=== PATIENT | male | born 2000 | race Caucasian/White ===

== ENCOUNTER 2022-08-07 18:26 | Emergency (ER) | payer SELFPAY | END 2022-08-07 20:02 | disposition left against medical advice (07) | LOC: MW.ED 18:26 | DX: Z53.21 Procedure and treatment not carried out due to patient leaving prior to being seen by health care provider (principal) ==

== ENCOUNTER 2022-08-07 22:25 | Emergency (ER) | payer SELFPAY ==
[2022-08-08 00:07] LABS: CORONAVIRUS COVID-19 NAA NEGATIVE (NEGATIVE); INFLUENZA A NAA NEGATIVE (NEGATIVE); INFLUENZA B NAA NEGATIVE (NEGATIVE)
[2022-08-08] MEDS ORDERED: Ondansetron 4 MG Tab.DIS PO ONE (01:03)
== END 2022-08-08 01:17 | disposition home or self-care (01) ==
LOC: MW.ED 22:25
DX: R11.2 Nausea with vomiting, unspecified (principal); R19.7 Diarrhea, unspecified; B34.9 Viral infection, unspecified; Z88.0 Allergy status to penicillin; Z20.822 Contact with and (suspected) exposure to COVID-19
CPT/HCPCS: 0240U; 99284; A9270

== ENCOUNTER 2022-09-23 08:08 | Emergency (ER) | payer SELFPAY ==
[2022-09-23 09:05] LABS: CORONAVIRUS COVID-19 NAA POSITIVE (NEGATIVE); INFLUENZA A NAA NEGATIVE (NEGATIVE); INFLUENZA B NAA NEGATIVE (NEGATIVE); RESPIRATORY SYNCYTIAL VIR NAA NEGATIVE (NEGATIVE)
== END 2022-09-23 09:46 | disposition home or self-care (01) ==
LOC: MW.ED 08:08
DX: U07.1 COVID-19 (principal); J02.0 Streptococcal pharyngitis; Z88.0 Allergy status to penicillin
CPT/HCPCS: 0241U; 87651; 99283

== ENCOUNTER 2022-10-29 10:04 | Emergency (ER) | payer SELFPAY | END 2022-10-29 10:33 | disposition home or self-care (01) | LOC: MW.ED 10:04 | DX: R11.14 Bilious vomiting (principal); Z88.0 Allergy status to penicillin | CPT/HCPCS: 99283 ==

== ENCOUNTER 2023-08-22 13:15 | Emergency (ER) | payer SELFPAY ==
[2023-08-22 15:16] LABS: APPEARANCE,URINE SLT CLOUDY; COLOR,URINE YELLOW; GLUCOSE,URINE NEGATIVE (NEGATIVE); KETONES,URINE 40 mg/dL (NEGATIVE); LEUKOCYTE ESTERASE,URINE NEGATIVE (NEGATIVE); NITRITE,URINE POSITIVE (NEGATIVE); OCCULT BLOOD,URINE NEGATIVE (NEGATIVE); PROTEIN,URINE 30 mg/dL (NEGATIVE)
[2023-08-22 15:39] LABS: AMORPHOUS SEDIMENT,URINE LIGHT (NEGATIVE); BACTERIA,URINE FEW (NEGATIVE); BILIRUBIN,URINE MODERATE (NEGATIVE); EPITHELIAL CELLS,URINE NOT SEEN (NONE-FEW); MUCUS,URINE HEAVY (NONE-MOD); RBC,URINE 0-2 (0-2/HPF)
[2023-08-22 16:46] LABS: C. TRACHOMATIS BY PCR NOT DETECTED; N. GONORRHOEAE BY PCR NOT DETECTED
== END 2023-08-22 17:05 | disposition home or self-care (01) ==
LOC: MW.ED 13:15
DX: N45.1 Epididymitis (principal); Z86.16 Personal history of COVID-19; Z88.0 Allergy status to penicillin
CPT/HCPCS: 76870; 76870-26; 81001; 87491; 87591; 93976; 99284

== ENCOUNTER 2023-09-03 12:46 | Emergency (ER) | payer SELFPAY ==
[2023-09-03 15:34] LABS: CORONAVIRUS COVID-19 NAA NEGATIVE (NEGATIVE); INFLUENZA A NAA NEGATIVE (NEGATIVE); INFLUENZA B NAA NEGATIVE (NEGATIVE); RESPIRATORY SYNCYTIAL VIR NAA NEGATIVE (NEGATIVE)
== END 2023-09-03 15:52 | disposition home or self-care (01) ==
LOC: MW.ED 12:46
DX: Z20.822 Contact with and (suspected) exposure to COVID-19 (principal); Z88.0 Allergy status to penicillin; Z86.16 Personal history of COVID-19
CPT/HCPCS: 0241U; 99283

== ENCOUNTER 2023-11-13 16:31 | Emergency (ER) | payer OTHER | END 2023-11-13 18:01 | disposition home or self-care (01) | LOC: MW.ED 16:31 | DX: R09.82 Postnasal drip (principal); F17.210 Nicotine dependence, cigarettes, uncomplicated; Z88.0 Allergy status to penicillin | CPT/HCPCS: 87651-QW; 99282; 99283 ==

== ENCOUNTER 2024-02-27 08:36 | Emergency (ER) | payer SELFPAY ==
[2024-02-27] MEDS: Sodium Chloride 0.9% 1,000 ML IV ONE (09:20)
[2024-02-27] MEDS: Sodium Chloride 0.9% 10 ML Syringe FLUSH PRN (09:20)
[2024-02-27] MEDS: Sodium Chloride 0.9% 2.5 ML Syringe FLUSH PRN (09:20)
[2024-02-27] MEDS: Ondansetron 4 MG/2 ML SDV IVPUSH ONE (09:21)
[2024-02-27 09:28] LABS: BASOPHILS ABSOLUTE AUTO 0.05 K/uL (0.00-0.20); BASOPHILS PERCENT AUTO 0.5 % (0.0-1.0); EOSINOPHILS ABSOLUTE AUTO 0.21 K/uL (0.00-0.45); EOSINOPHILS PERCENT AUTO 2.2 % (0.0-6.0); HEMATOCRIT 42.1 % (42.0-52.0); HEMOGLOBIN 14.3 g/dL (14.0-18.0); IMMATURE GRAN ABSOLUTE AUTO 0.02 K/uL (0.00-0.05); IMMATURE GRAN PERCENT AUTO 0.2 % (0.0-0.4); LYMPHOCYTES ABSOLUTE AUTO 0.97 K/uL (1.00-4.80); LYMPHOCYTES PERCENT AUTO 10.1 % (24.0-44.0); MEAN CORPUSCULAR HEMOGLOBIN 30.8 pg (28.0-32.0); MEAN CORPUSCULAR VOLUME 90.5 fL (83.0-99.0); MEAN PLATELET VOLUME 10.2 fL (9.4-12.4); MONOCYTES ABSOLUTE AUTO 0.72 K/uL (0.00-0.80); MONOCYTES PERCENT AUTO 7.5 % (0.0-8.0); NEUTROPHILS ABSOLUTE AUTO 7.64 K/uL (1.80-7.70); NEUTROPHILS PERCENT AUTO 79.5 % (41.0-71.0); PLATELET COUNT,PLT 248 K/uL (150-400); RED BLOOD CELL COUNT 4.65 M/uL (4.52-5.90); WHITE BLOOD CELL COUNT,WBC 9.61 K/uL (3.9-11.3)
[2024-02-27 09:51] LABS: A/G RATIO 1.1 (0.9-1.6); ALBUMIN 3.9 g/dL (3.4-5.0); BILIRUBIN TOTAL 0.6 mg/dL (0.2-1.0); CALCIUM 8.9 mg/dL (8.5-10.1); CARBON DIOXIDE,CO2 25.8 mmol/L (21.0-32.0); CREATININE 0.9 mg/dL (0.8-1.3); EST CRCL DRUG DOSING (CG) 128.8 mL/min; POTASSIUM,K 4.1 mmol/L (3.5-5.1); PROTEIN TOTAL,TP 7.6 g/dL (6.4-8.2)
[2024-02-27 10:07] LABS: CORONAVIRUS COVID-19 NAA NEGATIVE (NEGATIVE); INFLUENZA A NAA NEGATIVE (NEGATIVE); INFLUENZA B NAA NEGATIVE (NEGATIVE); RESPIRATORY SYNCYTIAL VIR NAA NEGATIVE (NEGATIVE)
== END 2024-02-27 11:32 | disposition home or self-care (01) ==
LOC: MW.ED 08:36
DX: R11.14 Bilious vomiting (principal); R10.9 Unspecified abdominal pain; Z75.8 Other problems related to medical facilities and other health care; Z88.0 Allergy status to penicillin; Z79.899 Other long term (current) drug therapy
CPT/HCPCS: 0241U; 36415; 80053; 83690; 85025; 96361; 96374; 99284; J2405; J3490; J7030

== ENCOUNTER 2024-05-04 08:15 | Emergency (ER) | payer SELFPAY ==
[2024-05-04] MEDS: Acetaminophen 500 MG Tab PO ONE (08:41)
[2024-05-04] MEDS: Ibuprofen 400 MG Tab PO ONE (08:41)
== END 2024-05-04 09:24 | disposition home or self-care (01) ==
LOC: MW.ED 08:15
DX: B34.9 Viral infection, unspecified (principal); Z88.0 Allergy status to penicillin
CPT/HCPCS: 87635; 99283; A9270; U0002

== ENCOUNTER 2025-02-07 07:03 | Emergency (ER) | payer SELFPAY ==
[2025-02-07 07:21] LABS: BASOPHILS ABSOLUTE AUTO 0.06 K/uL (0.00-0.20); BASOPHILS PERCENT AUTO 0.9 % (0.0-1.0); EOSINOPHILS ABSOLUTE AUTO 0.08 K/uL (0.00-0.45); EOSINOPHILS PERCENT AUTO 1.1 % (0.0-6.0); HEMATOCRIT 45.3 % (42.0-52.0); HEMOGLOBIN 15.7 g/dL (14.0-18.0); IMMATURE GRAN ABSOLUTE AUTO 0.02 K/uL (0.00-0.05); IMMATURE GRAN PERCENT AUTO 0.3 % (0.0-0.4); LYMPHOCYTES ABSOLUTE AUTO 2.04 K/uL (1.00-4.80); MEAN CORPUSCULAR HEMOGLOBIN 30.4 pg (28.0-32.0); MEAN CORPUSCULAR HGB CONC 34.7 g/dL (32.0-36.0); MEAN CORPUSCULAR VOLUME 87.8 fL (83.0-99.0); MEAN PLATELET VOLUME 10.3 fL (9.4-12.4); MONOCYTES ABSOLUTE AUTO 0.58 K/uL (0.00-0.80); MONOCYTES PERCENT AUTO 8.2 % (0.0-8.0); NEUTROPHILS ABSOLUTE AUTO 4.26 K/uL (1.80-7.70); NEUTROPHILS PERCENT AUTO 60.5 % (41.0-71.0); PLATELET COUNT,PLT 258 K/uL (150-400); RED BLOOD CELL COUNT 5.16 M/uL (4.52-5.90); WHITE BLOOD CELL COUNT,WBC 7.04 K/uL (3.9-11.3)
[2025-02-07] MEDS: Ondansetron 4 MG/2 ML SDV IVPUSH ONE (07:31)
[2025-02-07] MEDS: Pantoprazole 40 MG in Sodium Chloride 0.9% 10 ML IVPUSH ONE (07:32)
[2025-02-07] MEDS: Sodium Chloride 0.9% 1,000 ML IV ONE (07:33)
[2025-02-07 07:43] LABS: A/G RATIO 1.2 (0.9-1.6); ALBUMIN 4.6 g/dL (3.4-5.0); BILIRUBIN TOTAL 1.6 mg/dL (0.2-1.0); CALCIUM 9.3 mg/dL (8.5-10.1); CARBON DIOXIDE,CO2 24.3 mmol/L (21.0-32.0); EST CRCL DRUG DOSING (CG) 118.5 mL/min; POTASSIUM,K 3.2 mmol/L (3.5-5.1); PROTEIN TOTAL,TP 8.4 g/dL (6.4-8.2)
[2025-02-07] MEDS: Potassium Chloride 20 MEQ Tab.ER PO ONE (08:05)
[2025-02-07] MEDS: Magnesium Oxide 400 MG Tab PO ONE (08:20)
== END 2025-02-07 08:24 | disposition home or self-care (01) ==
LOC: MW.ED 07:03
DX: R11.2 Nausea with vomiting, unspecified (principal); E87.6 Hypokalemia; E83.42 Hypomagnesemia; F10.120 Alcohol abuse with intoxication, uncomplicated; Z88.0 Allergy status to penicillin
CPT/HCPCS: 36415; 80053; 80307; 83690; 83735; 85025; 96361; 96372; 96374; 99284; A9270; J2405; J2470; J7030; 93010; 99285